=== PATIENT | female | born 1960 | race Caucasian/White ===

== ENCOUNTER 2025-05-31 09:32 | Day surgery (SDC) | payer BC ==
[2025-05-29 14:12] VITALS: BMI 40.8
[2025-05-31] MEDS ORDERED: Famotidine/PF 20 mg/2ml Vial ONE (09:58)
[2025-05-31] MEDS ORDERED: metroNIDAZOLE 500 MG (100 mL) BAG ONE (09:58)
[2025-05-31] MEDS ORDERED: Gabapentin 300 MG CAP ONE (09:58)
[2025-05-31] MEDS ORDERED: Lidocaine 1% PF 5 ML VIAL ONE (10:44)
[2025-05-31] MEDS ORDERED: Rocuronium Bromide 10 MG/ML (10ML VIAL) ONE (10:44)
[2025-05-31] MEDS ORDERED: PROPOFOL 20 ML ONE (10:44)
[2025-05-31] MEDS ORDERED: Bupivacaine/Epinephrine 0.25% 30 ML VIAL ONE (11:40)
[2025-05-31] MEDS ORDERED: Ondansetron PF 4 MG/2 ML Vial ONE ×2 (12:36→16:47)
[2025-05-31] MEDS ORDERED: PHENYLEPHRINE-NS 100 MCG/ML 10 ML SYRINGE ONE (12:36)
[2025-05-31] MEDS ORDERED: CEFAZOLIN 1 GM VIAL ONE (12:45)
[2025-05-31] MEDS ORDERED: SUGAMMADEX SODIUM 200 MG/2 ML VIAL ONE (13:47)
[2025-05-31] MEDS ORDERED: HYDROmorphone 0.5 MG/0.5 ML SYRINGE ONE ×2 (14:23→14:34)
[2025-05-31] MEDS ORDERED: HYDROcodone/Acetaminophen 5/325 mg Tablet ONE (16:01)
== END 2025-05-31 17:25 | disposition home or self-care (01) ==
LOC: CSHSDC 09:32
PROVIDERS: ATTEND Student in an Organized Health Care Education/Training Program
DX: N87.9 Dysplasia of cervix uteri, unspecified (principal); N72 Inflammatory disease of cervix uteri; E78.00 Pure hypercholesterolemia, unspecified; Z98.51 Tubal ligation status; Z79.899 Other long term (current) drug therapy
CPT/HCPCS: 88307; J0690; J1100; J1171; J1308; J2405; J2704; J3010